=== PATIENT | male | born 1990 | race African-American/Black ===

== ENCOUNTER 2017-11-19 01:06 | Emergency (ER) | payer BC ==
[~2017-11-19] VITALS: Ht 182.9 cm; Wt 118.0 kg
[~2017-11-19 01:06] MED LIST: AMOXICILLIN500 MG OR; NO MEDS; ULTRAM50 M1 PO; ZOFRAN ODT4 MG OR
[2017-11-19] MEDS ORDERED: BP MED (01:27)
[2017-11-19 02:12] LABS: INFLUENZA A NONE DETECTED (NONE DETECT); INFLUENZA B NONE DETECTED (NONE DETECT)
[2017-11-19] MEDS ORDERED: AMOXICILLIN500 M2 PO (02:18)
[2017-11-19] MEDS ORDERED: TORADOL PO (02:18)
[2017-11-19 02:27] VITALS: BP 127/83
== END 2017-11-19 02:37 | disposition home or self-care (01) | DRG 153 ==
LOC: ED 01:06
PROVIDERS: Emergency Medicine
DX: J02.9 Acute pharyngitis, unspecified (principal); I10 Essential (primary) hypertension; F17.290 Nicotine dependence, other tobacco product, uncomplicated

== ENCOUNTER 2022-01-15 14:09 | Emergency (ER) | payer BC ==
[~2022-01-15] VITALS: Ht 182.9 cm; Wt 120.4 kg
[~2022-01-15 14:09] MED LIST changes: +AMOXICILLIN500 M2 PO; +BP MED; +TORADOL PO
[2022-01-15 15:19] LABS: URINE BILIRUBIN - DIPSTICK NEGATIVE (NEGATIVE); URINE COLOR YELLOW; URINE GLUCOSE - DIPSTICK NEGATIVE (NEGATIVE); URINE KETONE TRACE mg/dL (NEGATIVE); URINE LEUK ESTERASE NEGATIVE (NEGATIVE); URINE PH 5.5 (4.5-8.0); URINE PROTEIN - DIPSTICK NEGATIVE (NEG-TRACE); URINE SPECIFIC GRAVITY >=1.030; URINE UROBILINOGEN - DIPSTICK 0.2 E.U./dL (0.2)
[2022-01-15 15:20] LABS: HEMATOCRIT 42.3 % (39.0-50.0); HEMOGLOBIN 13.9 g/dl (14.0-18.0); IMMATURE GRANULOCYTES 0.2 % (0.0-5.0); MEAN CELL VOLUME 84.8 fL CALC (80.0-100.0); MEAN CORPUSCULAR HGB 27.9 pG CALC (26.0-32.0); MEAN CORPUSCULAR HGB CONC 32.9 g/dL CAL (32.0-36.0); NEUT# 3.97 thou/uL (1.82-7.42); RED BLOOD COUNT 4.99 mill/uL (4.70-6.10); RED CELL DISTRI WIDTH 13.7 % (11.5-15.5)
[2022-01-15 15:22] LABS: URINE BLOOD DIPSTICK NEGATIVE (NEGATIVE); URINE NITRITE - DIPSTICK NEGATIVE (Negative)
[2022-01-15 15:32] LABS: ALBUMIN 4.1 g/dL (3.2-5.0); ALKALINE PHOSPHATASE 93 u/l (38-126); BUN 12 mg/dL (9-20); BUN/CREATININE RATIO 12 (12-20 (CALC)); CARBON DIOXIDE 24 mmol/l (22-30); CHLORIDE 104 mmol/l (95-108); GFR FOR AFR.AMER. > 60 ML/MIN (>=60 (CALC)); GFR OTHER RACES > 60 ML/MIN (>=60 (CALC)); LIPASE 19 u/l (23-300); SGOT/AST 24 u/l (17-59); SODIUM 136 mmol/l (137-146); TOTAL PROTEIN 7.5 g/dL (6.3-8.2)
[2022-01-15 15:33] LABS: ANION GAP 12 (6-22 (CALC)); BILIRUBIN, TOTAL 0.8 mg/dL (0.0-1.4); POTASSIUM 3.5 mmol/l (3.5-5.1)
[2022-01-15 16:59] VITALS: BP 137/86
== END 2022-01-15 17:05 | disposition home or self-care (01) | DRG 392 ==
LOC: ED 14:09
PROVIDERS: Family Medicine
DX: R10.11 Right upper quadrant pain (principal); I10 Essential (primary) hypertension
CPT/HCPCS: Q9967